=== PATIENT | female | born 1960 | race Caucasian/White ===

== ENCOUNTER 2024-01-10 09:18 | Emergency (ER) | payer OTHER ==
[~2024-01-10] VITALS: Ht 172.7 cm; Wt 55.0 kg
[2024-01-10 09:23] VITALS: BP 163/78; PULSE 89; RESP 18; TEMP 98.5; O2SAT 99
[2024-01-10] MEDS ORDERED: DOXY-1 PO (11:04)
[2024-01-10] MEDS: LIDOcaine 1% 30ml preserv. free vial IJ STA (11:18)
[2024-01-10 13:30] LABS: BFAPPEAR CLOUDY; BFSOURCE OTHER
[2024-01-10 13:32] LABS: BF RBC COUNT 9775 /CU MM; BF WBC COUNT 2650 /CU MM (0-1000); BFCOLOR AMBER; BFVOLUME 13.5 ML; LYMPHOCYTES,BODY FLUID 6 %; MONOCYTES,BODY FLUID 1 %; NEUTROPHILS,BODY FLUID 93 %
[2024-01-10 15:56] LABS: BODY FLUID CRYSTALS QT NONE SEEN (NONE SEEN); CRYSTAL ID, BODY FLD NONE SEEN (NONE SEEN)
== END 2024-01-10 11:18 | disposition home or self-care (01) ==
LOC: ER 09:19
DX: M70.41 Prepatellar bursitis, right knee (principal); Y93.89 Activity, other specified
CPT/HCPCS: 20610; 87070; 87077; 87186; 89051; 89060; 99283; A6449